=== PATIENT | female | born 1935 | race Caucasian/White ===

== ENCOUNTER 2016-03-12 09:55 | Inpatient (IN) | payer MEDICARE ==
[~2016-03-12] VITALS: Ht 147.3 cm; Wt 61.7 kg
[2016-03-12] VITALS (15 sets, daily range): BP systolic 136–199; BP diastolic 72–113; PULSE 80–113; RESP 15–42; TEMP 97.4–97.8; O2SAT 95–98
[~2016-03-12 09:55] MED LIST: LEVO.025 PO; MECL-62 PO
[2016-03-12] MEDS ORDERED: SODIUM CHLOR 0.9% 1000 ML INJ 1,000 ML IV ONE (10:12)
--- NOTE | 2016-03-12 10:29 | RADRPT ---
EXAM DATE/TIME: 03/12/2016 10:19 [facility] COMPARISON: MRI BRAIN W & W/O CONTRAST, July 02, 2014, 11:09. CT BRAIN W/O CONTRAST, November 12, 2015, 18:36. INDICATIONS : Stroke alert; left sided weakness, slurred speach, left facial droop. RADIATION DOSE: 34.71 CTDIvol (mGy) This report was called by Dr. Pandey to at 10: 26 AM MEDICAL HISTORY : Cardiovascular disease. SURGICAL HISTORY : None. ENCOUNTER: Initial ACUITY: 1 day PAIN SCALE: Non-responsive LOCATION: cranial TECHNIQUE: Multiple contiguous axial images were obtained of the head. Using automated exposure control and adj ustment of the mA and/or kV according to patient size, radiation dose was kept as low as reasonably a chievable to obtain optimal diagnostic quality images. FINDINGS: CEREBRUM: The ventricles are normal for age. No evidence of midline shift, mass lesion, hemorrhage or acute in farction. No extra-axial fluid collections are seen. Marked deep white matter and periventricular mi crovascular butterfly ischemic demyelinization is unchanged POSTERIOR FOSSA: The cerebellum and brainstem are intact. The 4th ventricle is midline. The cerebellopontine angle i s unremarkable. EXTRACRANIAL: The visualized portion of the orbits is intact. SKULL: The calvaria is intact. No evidence of skull fracture. CONCLUSION: Stable CT brain scan with marked microvascular ischemic demyelinization in deep white matter and coreen ventricular in a butterfly pattern. No acute intracranial abnormality. Brady Pandey MD on March 12, 2016 at 10:24 Board Certified Radiologist. This report was verified electronically.
[2016-03-12 10:42] LABS: AUTOMATED NEUTROPHIL # 3.3 TH/MM3 (1.8-7.7); BASOPHIL % 0.2 % (0.0-2.0); EOSINOPHIL # 0.2 TH/MM3 (0-0.4); EOSINOPHIL % 3.5 % (0.0-4.0); HEMATOCRIT 40.9 % (35.0-46.0); HEMO FLAGS DIFF FINAL; LYMPH % 20.8 % (9.0-44.0); MEAN CELL VOLUME 90.5 FL (80.0-100.0); MEAN CORPUSCULAR HEMOGLOBIN 30.8 PG (27.0-34.0); MEAN CORPUSCULAR HGB CONC 34.1 % (32.0-36.0); NEUT % 66.5 % (16.0-70.0); PLATELET COUNT 343 TH/MM3 (150-450); RED BLOOD COUNT 4.52 MIL/MM3 (4.00-5.30); RED CELL DISTRIBUTION WIDTH 13.9 % (11.6-17.2)
[2016-03-12 10:44] LABS: I-STAT POTASSIUM 3.9 MMOL/L (3.5-4.9); I-STAT SODIUM 135 MMOL/L (138-146)
[2016-03-12 10:50] LABS: APTT (PATIENT) 24.4 SEC (24.3-30.1); PROTHROMBIN TIME - PATIENT 10.6 SEC (9.8-11.6)
--- NOTE | 2016-03-12 10:51 | RADRPT ---
EXAM DATE/TIME: 03/12/2016 10:26 [facility] COMPARISON: CHEST SINGLE AP, November 12, 2015, 18:40. INDICATIONS : Chest pain this morning MEDICAL HISTORY : None. SURGICAL HISTORY : shoulder ENCOUNTER: Initial ACUITY: 1 day PAIN SCORE: Non-responsive. LOCATION: Bilateral chest FINDINGS: A single view of the chest demonstrates the lungs to be symmetrically aerated without evidence of mas s, infiltrate or effusion. The cardiomediastinal contours are unremarkable. Osseous structures are intact. CONCLUSION: No acute disease. No significant change has occurred. Brady Pandey MD on March 12, 2016 at 10:49 Board Certified Radiologist. This report was verified electronically.
[2016-03-12] MEDS ORDERED: SYNT25TA PO (11:01)
[2016-03-12] MEDS ORDERED: MECL-62 PO (11:01)
[2016-03-12 11:08] LABS: CREATINE KINASE 51 U/L (26-192)
[2016-03-12] MEDS ORDERED: DEXTROSE 50% IN WATER 50 ML VIAL(D50) IV PUSH PRN (11:30)
[2016-03-12] MEDS ORDERED: GLUCAGON 1 MG/ML VIAL IM/SQ PRN (11:30)
[2016-03-12] MEDS ORDERED: ENALAPRILAT 1.25 MG/ML VIAL IV PRN (11:30)
[2016-03-12] MEDS ORDERED: SODIUM CHLORIDE 0.9% FLUSH 5 ML FLUSH IVF PRN (11:30)
[2016-03-12 11:31] LABS: AMPHETAMINE, URINE NEG (NEG); BARBITURATES, URINE NEG (NEG); COCAINE, URINE NEG (NEG)
--- NOTE | 2016-03-12 11:31 | HHI.HP ---
[facility] Service Family Medicine Primary Care Physician Anthony Linares MD Admission Diagnosis CVA, AMS Diagnoses: International Travel<30 Days: No Contact w/Intl Traveler<30days: No Known Affected Area: No History of Present Illness Of note patient is a poor historian due to altered mental status Most history obtained from caregiver who is not the best historian either This an 80-year-old female with past medical history significant for hypothyroidism and atrial fibrillation (currently not anticoagulated). She is presenting to the hospital due to altered mental status. She was brought in by her caregiver data processing specialist. She woke at 8 AM on the day of admission (03/12/16) at her baseline. This at around 9 AM when she slumped over and had a near syncopal episode. Since that point the patient was acting confused, not making any sense, and appeared weaker. She was brought in by [facility] and a stroke alert was performed. At the time of evaluation workup has been negative for stroke. Per caregiver at baseline she has a left-sided facial droop, but is currently worse. Throughout the examination she was uncooperative, completely confused, and unable to follow any commands other than squeezing my fingers. Most of information obtained from chart review (Babar Diamond MD R2) Review of Systems ROS Limitations: Clinical Condition, Altered Mental Status, Uncooperative, Poor Historian Other Endorses: Confusion, generalized weakness, generalized pain Denies: Fever, nausea, vomiting, abdominal pain (Babar Diamond MD R2) Past Family Social History Past Medical History Hypothyroidism Vertigo Possible atrial fibrillation Past Surgical History Appendectomy Rotator cuff surgery Reported Medications Reported Meds & Active Scripts Active Reported Meclizine (Meclizine HCl) 25 Mg Tab 25 Mg PO TID Synthroid (Levothyroxine Sodium) 25 Mcg Tab 25 Mcg PO DAILY (Babar Diamond MD R2) Allergies: Coded Allergies: Biaxin (Verified Allergy, Severe, 03/12/16) Sulfites & Bisulfites (Verified Allergy, Severe, 03/12/16) Hydrocodone (Unverified Allergy, Unknown, 03/12/16) Morphine (Verified Allergy, Unknown, 03/12/16) Family History Patient's father from brain cancer. Mother from breast cancer Social History Per caregiver Lives at home by herself with 2 caregivers monitoring her day and night. Denies smoking Denies alcohol Denies illicit drugs (Babar Diamond MD R2) Physical Exam Vital Signs Vital Signs Date Time Temp Pulse Resp B/P Pulse Ox O2 Delivery O2 Flow Rate FiO2 03/12/16 11:02 92 20 187/86 98 Nasal Cannula 2 03/12/16 10:30 87 20 162/76 98 Nasal Cannula 03/12/16 10:14 98 Nasal Cannula 2 03/12/16 10:14 98 Nasal Cannula 2 03/12/16 10:14 17 97 Nasal Cannula 03/12/16 10:07 97.6 84 15 164/72 97 03/12/16 10:02 97.8 104 26 136/79 95 Physical Exam GENERAL: Elderly female lying in bed in no acute distress SKIN: Warm and dry. HEAD: Atraumatic. Normocephalic. EYES: Pupils equal and round. No scleral icterus. No injection or drainage. ENT: No nasal bleeding or discharge. Mucous membranes pink and moist. NECK: Supple CARDIOVASCULAR: Regular rate and rhythm. No murmur appreciated. RESPIRATORY: No accessory muscle use. Clear to auscultation. Breath sounds equal bilaterally. GASTROINTESTINAL: Abdomen soft, non-tender, nondistended. MUSCULOSKELETAL: No obvious deformities. No edema. NEUROLOGICAL: Awake, not alert or oriented, saying one-word sentences, not answering questions or following commands. No nystagmus noticed. Slight nasal labial fold flattening on the left, per caregiver worse than baseline. Left arm and left leg are slightly weakened compared to the right with minimal droop. No obvious ataxia, sensory loss, language deficit or dysarthria, neglect. Patient is not able to cooperate with neuro exam. Laboratory Laboratory Tests Test 03/12/16 10:10 White Blood Count 5.0 Red Blood Count 4.52 Hemoglobin 13.9 Bedside Hemoglobin 14.3 Hematocrit 40.9 Bedside Hematocrit 42.0 Mean Corpuscular Volume 90.5 Mean Corpuscular Hemoglobin 30.8 Mean Corpuscular Hemoglobin 34.1 Concent Red Cell Distribution Width 13.9 Platelet Count 343 Mean Platelet Volume 7.5 Neutrophils (%) (Auto) 66.5 Lymphocytes (%) (Auto) 20.8 Monocytes (%) (Auto) 9.0 Eosinophils (%) (Auto) 3.5 Basophils (%) (Auto) 0.2 Neutrophils # (Auto) 3.3 Lymphocytes # (Auto) 1.0 Monocytes # (Auto) 0.4 Eosinophils # (Auto) 0.2 Basophils # (Auto) 0.0 CBC Comment DIFF FINAL Differential Comment Prothrombin Time 10.6 Prothromb Time International 1.0 Ratio Activated Partial 24.4 Thromboplast Time Fibrinogen 366 Bedside Sodium 135 Bedside Potassium 3.9 Bedside Chloride 101 Bedside Blood Urea Nitrogen 20 Bedside Creatinine 0.6 Bedside Glucose 113 Total Creatine Kinase 51 Troponin I LESS THAN 0.02 Blood Type B POSITIVE Antibody Screen NEGATIVE Blood Bank Comment (Babar Diamond MD R2) Result Diagram: 03/12/16 1010 Imaging Last Impressions Chest X-Ray 03/12/16 1013 Signed Impressions: Service Date/Time: Saturday, March 12, 2016 10:26 - CONCLUSION: No acute disease. No significant change has occurred. Brady Pandey MD Head Magnetic Resonance Angiography 03/12/16 0000 Signed Impressions: Service Date/Time: Saturday, March 12, 2016 12:54 - CONCLUSION: Normal examination. Brady Pandey MD Head CT 03/12/16 0000 Signed Impressions: Service Date/Time: Saturday, March 12, 2016 10:19 - CONCLUSION: Stable CT brain scan with marked microvascular ischemic demyelinization in deep white matter and periventricular in a butterfly pattern. No acute intracranial abnormality. Brday Pandey MD (Babar Diamond MD R2) Assessment and Plan Assessment and Plan This an 80-year-old female with past medical history significant for hypothyroidism and atrial fibrillation (currently not anticoagulated). Being admitted for altered mental status, differential diagnosis CVA versus TIA versus delirium. UA suggestive of urinary tract infection. Code Status Full code Discussed Condition With WDW: Dr. Stern (Babar Diamond MD R2) Attending Attestation THIS CASE WAS DISCUSSED WITH THE RESIDENT PHYSICIANS. I HAVE REVIEWED THE RECORD AND AGREE WITH THE ABOVE NOTE AND PLAN OF CARE WAS DISCUSSED. I HAVE AUTHORIZED THE ORDER FOR ADMISSION TO AN IN-PATIENT STATUS. (Frank Stern MD) Problem List: (1) Altered mental status Status: Acute Plan: Presenting with altered mental status concern for CVA versus TIA versus delirium versus metabolic abnormality. Stroke alert called at time of arrival. UA suggestive of UTI * Admitted to inpatient * Neurology consulted: Recommendations appreciated * Per neurology holding TPA at this time * CT brain: no acute hemorrhagic stroke * MRI brain: Pending * Head of bed flat * Permissive hypertension * Ativan 0.5 mg IV every 4 hours when necessary anxiety or agitation * Insulin sliding scale * Trending troponins * Lipid profile ordered: Results pending * Hemoglobin A1c ordered: Results pending * CBC, BMP ordered for the a.m. (2) UTI (urinary tract infection) Status: Acute Plan: UA suggestive of urinary tract infection: Positive nitrites, large leukocyte esterase, many bacteria, urine white blood cell count elevated at 128. Delirium due to UTI possibility for altered mental status. * Started Rocephin 2 g IV every 24 hours * Urine cultures pending * Blood cultures pending (3) Hypothyroidism Status: Acute Plan: Reported history of hypothyroidism * Continue home medication of Synthroid (4) Nutrition, metabolism, and development symptoms Status: Acute Plan: Nothing by mouth Swallow study ordered Head of bed flat until cleared by neurology Permissive hypertension SCD and Lovenox DVD prophylaxis Vitals every 4 Neuro checks every 2 NIH stroke scale CODE STATUS: Full code Health care surrogate: Eve Head[place] #[phone] (Babar Diamond MD R2) Physician Certification 2 Midnight Certification Type: Admission for Inpatient Services Order for Inpatient Services The services are ordered in accordance with Medicare regulations or non- Medicare payer requirements, as applicable. In the case of services not specified as inpatient-only, they are appropriately provided as inpatient services in accordance with the 2-midnight benchmark. Estimated LOS (days): 3 days is the estimated time the patient will need to remain in the hospital, assuming treatment plan goals are met and no additional complications. Post-Hospital Plan: SNF (Babar Diamond MD R2) Problem Qualifiers (1) Altered mental status: Qualified Code: R41.82 - Altered mental status, unspecified altered mental status type Babar Diamond MD R2 Mar 12, 2016 11:31 Frank Stern MD Mar 12, 2016 19:40
--- NOTE | 2016-03-12 11:31 | PD ---
HPI Chief Complaint: Neuro Symptoms/ Deficits Time Seen by Provider: 10:07 Travel History International Travel<30 days: No Contact w/Intl Traveler<30days: No Traveled to known affect area: No History of Present Illness HPI Patient is a 80-year-old female who presents the emergency department with altered mental status and neuro symptoms. Patient is here with her personal carer. Neither of the 2 of them are able to provide good history. After approximately 10-15 minutes talking with both of them from what I can gather she awoke at her baseline at approximately 8 AM. She was eating breakfast at which point she slumped over on her personal carer with a near syncopal episode. Patient then seemed to be acting inappropriately thereafter. She was brought here and immediately bedded where she was evaluated by myself. Patient is cantankerous and is unable to cooperate with history or physical. digital experience manager states that she does not have any family locally, And to her knowledge her only medical problem is hypothyroidism. PFSH Past Medical History Asthma: Yes Anxiety: Yes Depression: Yes Heart Rhythm Problems: Yes (SVT) Cancer: No Cardiovascular Problems: Yes High Cholesterol: No Chest Pain: No Congestive Heart Failure: No Diabetes: No Diminished Hearing: No Endocrine: Yes Gastrointestinal Disorders: Yes GERD: Yes Genitourinary: No Hepatitis: No Immune Disorder: No Musculoskeletal: Yes Neurologic: Yes Psychiatric: Yes Reproductive: No Respiratory: No Migraines: Yes Thyroid Disease: Yes Ulcer: Yes Menopausal: Yes Past Surgical History Abdominal Surgery: Yes (APPENDECTOMY) Appendectomy: Yes Eye Surgery: No Genitourinary Surgery: Yes (PILONIDAL CYSTECTOMY) Pacemaker: No Tonsillectomy: Yes Other Surgery: Yes (L ROTATOR CUFF) Social History Alcohol Use: No Tobacco Use: No Substance Use: No Allergies-Medications (Allergen,Severity, Reaction): Coded Allergies: Biaxin (Verified Allergy, Severe, 03/12/16) Sulfites & Bisulfites (Verified Allergy, Severe, 03/12/16) Hydrocodone (Unverified Allergy, Unknown, 03/12/16) Morphine (Verified Allergy, Unknown, 03/12/16) Reported Meds & Prescriptions Reported Meds & Active Scripts Active Reported Meclizine (Meclizine HCl) 25 Mg Tab 25 Mg PO TID Synthroid (Levothyroxine Sodium) 25 Mcg Tab 25 Mcg PO DAILY Review of Systems ROS Limitations: Altered Mental Status, Poor Historian Physical Exam Exam Limitations: Altered Mental Status, Poor Historian Narrative GENERAL: Elderly female lying in bed in no acute distress SKIN: Warm and dry. HEAD: Atraumatic. Normocephalic. EYES: Pupils equal and round. No scleral icterus. No injection or drainage. ENT: No nasal bleeding or discharge. Mucous membranes pink and moist. NECK: Supple CARDIOVASCULAR: Regular rate and rhythm. No murmur appreciated. RESPIRATORY: No accessory muscle use. Clear to auscultation. Breath sounds equal bilaterally. GASTROINTESTINAL: Abdomen soft, non-tender, nondistended. MUSCULOSKELETAL: No obvious deformities. No edema. NEUROLOGICAL: Awake and alert. But does not answer questions or follow commands appropriately. No obvious gaze or visual field deficit. Slight nasal labial fold flattening on the left, though there is an associated scar with this. digital experience manager does not know whether this is chronic or not. Left arm and left leg are slightly weakened compared to the right with minimal droop. No obvious ataxia, sensory loss, language deficit or dysarthria, neglect. Patient is not able to cooperate completely with [place] stroke scale testing, from the best I can gather her stroke scale is 6 @ 1010. PSYCHIATRIC: Appropriate mood and affect; insight and judgment normal. Data Data Last Documented VS Vital Signs Date Time Temp Pulse Resp B/P Pulse Ox O2 Delivery O2 Flow Rate FiO2 03/12/16 11:02 92 20 187/86 98 Nasal Cannula 2 03/12/16 10:07 97.6 Orders Diet Npo (03/12/16 Lunch) Activity Bed Rest (03/12/16 ) Electrocardiogram (03/12/16 ) I-Stat Creatinine (03/12/16 10:12) I-Stat Profile (03/12/16 10:12) Prothrombin Time / Inr (Pt) (03/12/16 10:12) Act Partial Throm Time (Ptt) (03/12/16 10:12) Complete Blood Count With Diff (03/12/16 10:12) Fibrinogen (03/12/16 10:12) Creatine Kinase (Cpk) (03/12/16 10:12) Troponin I (03/12/16 10:12) Ua Includes Microscopic (03/12/16 10:12) Drug Screen, Random Urine (03/12/16 10:12) Type And Screen (03/12/16 10:12) Ct Brain W/O Iv Contrast(Rout) (03/12/16 ) Consult Neurology (03/12/16 ) Blood Glucose (03/12/16 10:12) Ecg Monitoring (03/12/16 10:12) Neuro Checks Q2HX12,Q4H (03/12/16 10:12) Nursing Bedside Swallow Assess .ONCE (03/12/16 10:12) Iv Access Insert/Monitor (03/12/16 10:12) NPO (03/12/16 10:12) Oximetry (03/12/16 10:12) Oxygen Administration (03/12/16 10:12) Sodium Chlor 0.9% 1000 Ml Inj (Ns 1000 M (03/12/16 10:12) Resp Oxygen Shane C Titrat 1-4 L (03/12/16 10:12) Cath For Specimen (03/12/16 10:12) Chest, Single Ap (03/12/16 10:13) Urinalysis - C+S If Indicated (03/12/16 10:13) (Hub Use Only)Inp Phy Cons/Ref (03/12/16 ) Admit Order (Ed Use Only) (03/12/16 11:09) Labs Laboratory Tests Test 03/12/16 10:10 White Blood Count 5.0 TH/MM3 Red Blood Count 4.52 MIL/MM3 Hemoglobin 13.9 GM/DL Bedside Hemoglobin 14.3 G/DL Hematocrit 40.9 % Bedside Hematocrit 42.0 % Mean Corpuscular Volume 90.5 FL Mean Corpuscular Hemoglobin 30.8 PG Mean Corpuscular Hemoglobin 34.1 % Concent Red Cell Distribution Width 13.9 % Platelet Count 343 TH/MM3 Mean Platelet Volume 7.5 FL Neutrophils (%) (Auto) 66.5 % Lymphocytes (%) (Auto) 20.8 % Monocytes (%) (Auto) 9.0 % Eosinophils (%) (Auto) 3.5 % Basophils (%) (Auto) 0.2 % Neutrophils # (Auto) 3.3 TH/MM3 Lymphocytes # (Auto) 1.0 TH/MM3 Monocytes # (Auto) 0.4 TH/MM3 Eosinophils # (Auto) 0.2 TH/MM3 Basophils # (Auto) 0.0 TH/MM3 CBC Comment DIFF FINAL Differential Comment Prothrombin Time 10.6 SEC Prothromb Time International 1.0 RATIO Ratio Activated Partial 24.4 SEC Thromboplast Time Fibrinogen 366 mg/dL Bedside Sodium 135 MMOL/L Bedside Potassium 3.9 MMOL/L Bedside Chloride 101 MMOL/L Bedside Blood Urea Nitrogen 20 MG/DL Bedside Creatinine 0.6 MG/DL Bedside Glucose 113 MG/DL Total Creatine Kinase 51 U/L Troponin I LESS THAN 0.02 NG/ML Blood Type B POSITIVE Antibody Screen NEGATIVE Blood Bank Comment MDM Medical Decision Making Medical Screen Exam Complete: Yes Emergency Medical Condition: Yes Medical Record Reviewed: Yes Differential Diagnosis 80-year-old female here with altered mental status. On exam she has left-sided neuro deficits, unclear whether this is new or not but per care provider it is new. Therefore stroke alert was activated. Differential includes CVA, TIA, UTI , metabolic derangement, electrolyte abnormality, syncope, near-syncope, arrhythmia, ICH, encephalopathy. Narrative Course Patient met by myself, placed on monitor, IV established and blood obtained. Stroke alert activated. Patient was expedited for neuro imaging, head CT shows chronic changes but no acute abnormalities. Twelve-lead EKG shows sinus rhythm without notable ST abnormalities, normal intervals. CBC, i-STAT, coags, fibrinogen, CPK, troponin obtained and unremarkable. Portal chest x-ray obtained and by my read shows no acute abnormalities. Urinalysis and urine drug screen remains pending at the time this dictation. Patient will be admitted to the residence for further management. Throughout patient's emergency department stay her neurologic examination gradually improved even just returning from CT. Patient certainly is not consentable, there is a personal carer at bedside who is not able to consent for her. Given the unclear picture, poor history and only minimal neurologic deficit which patient could live with independently I certainly do not feel comfortable thrombolysis in her. I spoke with neurologist Dr. Reyes who agrees with above plan. Critical Care Narrative Aggregate critical care time was 45 minutes. Time to perform other separately billable procedures was not included in the critical care time. My time did not include minutes spent treating any other patients simultaneously or on activities that did not directly contribute to the patient's treatment. The services I provided to this patient were to treat and/or prevent clinically significant deterioration that could result in: Neurologic decompensation, , disability, consideration of thrombolysis I provided critical care services requiring my management, as noted below: Chart data review, documentation time, medication orders and management, vital sign assessments/reviewing monitor data, ordering and reviewing lab tests, ordering and interpreting/reviewing x-rays and diagnostic studies, care of the patient and discussion of the patient with the admitting physicians. Diagnosis Primary Impression: CVA (cerebral vascular accident) Qualified Code: I63.9 - Cerebrovascular accident (CVA), unspecified mechanism Additional Impression: Altered mental status Qualified Code: R41.82 - Altered mental status, unspecified altered mental status type Admitting Information Admitting Physician Requests: Admit Fernanda Campos MD Mar 12, 2016 11:31
[2016-03-12 11:32] LABS: BACTERIA, URINE MANY /hpf; BLOOD, URINE NEG (NEG); COMMENT (UR) CATH-CULTURE IND; CULTURE IF INDICATED CATH CULTURE IND; GLUCOSE,URINE NEG (NEG); KETONE, URINE NEG (NEG); NITRITE,URINE POS (NEG); URINE COLOR LIGHT-YELLOW (YELLW/STRAW)
[2016-03-12] MEDS: ENOXAPARIN SODIUM 60 MG/0.6 ML SYRINGE SQ SCH (12:20)
[2016-03-12] MEDS: LORazepam 2 MG/ML VIAL IV PUSH PRN ×2 (12:42→21:53)
[2016-03-12 13:10] LABS: APTT (PATIENT) 25.3 SEC (24.3-30.1)
--- NOTE | 2016-03-12 13:23 | RADRPT ---
EXAM DATE/TIME: 03/12/2016 12:54 [facility] COMPARISON: CT BRAIN W/O CONTRAST, March 12, 2016, 10:19. CHEST SINGLE AP, March 12, 2016, 10:26. INDICATIONS : Altered mental status. MEDICAL HISTORY : Hypertension. SURGICAL HISTORY : Stenting, Lt shoulder ENCOUNTER: Initial ACUITY: 1 day PAIN SCORE: 0/10 LOCATION: cranial Please note a normal MRA of the brain does not entirely exclude the possibility of a small aneurysm, nor the possibility of distal intracranial vessel disease. TECHNIQUE: 3D time of flight MRA was performed. Source images, multiplanar STS MIP, and 3D volume MIP reconstru ctions were reviewed. FINDINGS: There is excellent visualization of the major intracranial arteries out to the second-order branch ve ssels. There is no evidence for aneurysm, vessel truncation or stenosis, and no evidence for vascula r malformation. CONCLUSION: Normal examination. Brady Pandey MD on March 12, 2016 at 13:19 Board Certified Radiologist. This report was verified electronically.
--- NOTE | 2016-03-12 13:49 | EKG ---
Date Performed: 03/12/2016 Time Performed: 10:40:37 PTAGE: 80 years EKG: Sinus rhythm NORMAL ECG PREVIOUS TRACING : 11/12/2015 19.20 No significant change from previous tracing noted. DOCTOR: Juan Juares Interpretating Date/Time 03/12/2016 13:47:55
--- NOTE | 2016-03-12 13:56 | RADRPT ---
EXAM DATE/TIME: 03/12/2016 12:54 [facility] COMPARISON: No previous studies available for comparison. INDICATIONS : Altered mental status. MEDICAL HISTORY : Hypertension. SURGICAL HISTORY : Stenting, left shoulder ENCOUNTER: Initial ACUITY: 1 day PAIN SCORE: 0/10 LOCATION: Cranial TECHNIQUE: Multiplanar, multisequence MRI of the brain was performed without contrast. FINDINGS: Marked periventricular white matter changes are noted with central and cortical atrophy. There is no restricted diffusion suggesting an acute process. There is moderate dilatation of ventricular and s ulcal spaces. There are no extra-axial fluid collections appreciated. The periventricular ischemic changes extend into the basal ganglia and the posterior fossa. Small l acunar infarcts are seen in the brain stem. There is no parenchymal hemorrhage. CONCLUSION: Marked central and cortical atrophy without restricted diffusion. Albino Knox MD FACR on March 12, 2016 at 13:23 Board Certified Radiologist. This report was verified electronically.
[2016-03-12] MEDS: INSULIN ASPART SUPPLEMENTAL SCALE SQ SCH ×2 (16:00→21:00)
[2016-03-12] MEDS: cefTRIAXone INJ 2,000 MG in SODIUM CHLORIDE 0.9% INJ 100 ML IV SCH (17:45)
[2016-03-12] MEDS ORDERED: MECLIZINE HCL 25 MG TAB PO SCH (18:00)
[2016-03-12] MEDS: SODIUM CHLORIDE 0.9% FLUSH 5 ML FLUSH IVF SCH (21:00)
[2016-03-13] VITALS (7 sets, daily range): BP systolic 120–178; BP diastolic 59–78; PULSE 95–114; RESP 18–23; TEMP 96–98.9; O2SAT 95–98
[2016-03-13] MEDS: LEVOTHYROXINE SODIUM 25 MCG TAB PO SCH (05:25)
[2016-03-13] MEDS: INSULIN ASPART SUPPLEMENTAL SCALE SQ SCH ×4 (05:26→22:13)
[2016-03-13 07:35] LABS: AUTOMATED NEUTROPHIL # 10.2 TH/MM3 (1.8-7.7); BASOPHIL % 0.2 % (0.0-2.0); HEMATOCRIT 39.5 % (35.0-46.0); HEMO FLAGS DIFF FINAL; LYMPH % 6.7 % (9.0-44.0); LYMPHOCYTE # 0.8 TH/MM3 (1.0-4.8); MEAN CORPUSCULAR HEMOGLOBIN 30.4 PG (27.0-34.0); MEAN CORPUSCULAR HGB CONC 33.8 % (32.0-36.0); MONO % 5.7 % (0.0-8.0); NEUT % 87.4 % (16.0-70.0); PLATELET COUNT 355 TH/MM3 (150-450); RED BLOOD COUNT 4.38 MIL/MM3 (4.00-5.30); RED CELL DISTRIBUTION WIDTH 13.7 % (11.6-17.2); WHITE BLOOD COUNT 11.7 TH/MM3 (4.0-11.0)
[2016-03-13 08:01] LABS: BICARBONATE 22.9 MEQ/L (21.0-32.0); POTASSIUM 3.4 MEQ/L (3.5-5.1)
--- NOTE | 2016-03-13 08:35 | HHI.FPPN ---
Subjective Remarks FM Attending Note: Patient seen and examined. S: Chart and all resident physician notes reviewed. In summary this is a 80 year old female who was admitted with an admission diagnosis of Cva,Ams. This patient has a history of a dementing illness for which she was initially in a senior living facility following a hospitalization and then discharged to her private home and [place] with 24-hour aids to assist her. The patient also has a power of staff attorney apparently for finances and health care. In addition to the alteration of her mental status when admitted yesterday her aid spell but she has some left facial weakness. This morning her altered mental status has significantly improved but her aid who is present still feels that she has some slight weakness of the left side of her mouth. The patient denies any difficulty. She is right handed. Normally she needs assistance with her instrumental activities of daily living although the aid notes that she helps assist her in directing payment of pills. She is independent normally in her basic activities of daily living. This patient was reportedly taking meclizine 3 times a day for chronic dizziness prior to admission. Objective Vitals Vital Signs Date Time Temp Pulse Resp B/P Pulse Ox O2 Delivery O2 Flow Rate FiO2 03/13/16 04:30 97.1 100 23 169/78 96 03/13/16 00:00 98.9 114 20 178/78 98 03/12/16 20:32 107 03/12/16 20:00 97.4 113 20 173/80 96 03/12/16 17:00 92 18 180/88 97 03/12/16 15:30 96 18 179/87 97 03/12/16 12:30 93 199/92 03/12/16 12:30 94 26 199/92 03/12/16 12:00 102 40 167/113 03/12/16 11:45 105 42 162/112 03/12/16 11:15 108 190/90 03/12/16 11:02 92 20 187/86 98 Nasal Cannula 2 03/12/16 11:01 104 34 187/86 03/12/16 10:45 80 31 162/76 03/12/16 10:30 87 20 162/76 98 Nasal Cannula 03/12/16 10:14 98 Nasal Cannula 2 03/12/16 10:14 98 Nasal Cannula 2 03/12/16 10:14 17 97 Nasal Cannula 03/12/16 10:07 97.6 84 15 164/72 97 03/12/16 10:02 97.8 104 26 136/79 95 I/O 03/12/16 03/12/16 03/12/16 03/13/16 03/13/16 03/13/16 07:00 15:00 23:00 07:00 15:00 23:00 Intake Total 0 ml 0 ml Output Total 1500 ml 1000 ml Balance -1500 ml -1000 ml Intake Oral 0 ml 0 ml Output Urine Total 1500 ml 1000 ml # Bowel Movements 0 0 Result Diagram: 03/13/16 0659 03/13/16 0659 Other Results Item Value Date Time Total Creatine Kinase 51 U/L 03/12/16 1010 Troponin I LESS THAN 0.02 NG/ML L 03/12/16 1010 Troponin I LESS THAN 0.02 NG/ML L 03/12/16 1237 Troponin I LESS THAN 0.02 NG/ML L 03/12/16 1745 Troponin I LESS THAN 0.02 NG/ML L 03/12/16 2341 Triglycerides Level 62 MG/DL 03/13/16 0659 Cholesterol Level 228 MG/DL H 03/13/16 0659 LDL Cholesterol 133 MG/DL H 03/13/16 0659 HDL Cholesterol 83.0 MG/DL H 03/13/16 0659 Cholesterol/HDL Ratio 2.74 RATIO 03/13/16 0659 Urine Opiates Screen NEG 03/12/16 1100 Urine Barbiturates Screen NEG 03/12/16 1100 Urine Amphetamines Screen NEG 03/12/16 1100 Urine Benzodiazepines Screen NEG 03/12/16 1100 Urine Cocaine Screen NEG 03/12/16 1100 Urine Cannabinoids Screen NEG 03/12/16 1100 Urine Specific Orange 1.009 03/12/16 1100 Urine Nitrite POS H 03/12/16 1100 Urine Leukocyte Esterase LARGE H 03/12/16 1100 Urine RBC 5 /hpf H 03/12/16 1100 Urine WBC 128 /hpf H 03/12/16 1100 Imaging Last 48 hours Impressions Chest X-Ray 03/12/16 1013 Signed Impressions: Service Date/Time: Saturday, March 12, 2016 10:26 - CONCLUSION: No acute disease. No significant change has occurred. Brady Pandey MD Head Magnetic Resonance Angiography 03/12/16 0000 Signed Impressions: Service Date/Time: Saturday, March 12, 2016 12:54 - CONCLUSION: Normal examination. Brady Pandey MD Head CT 03/12/16 0000 Signed Impressions: Service Date/Time: Saturday, March 12, 2016 10:19 - CONCLUSION: Stable CT brain scan with marked microvascular ischemic demyelinization in deep white matter and periventricular in a butterfly pattern. No acute intracranial abnormality. Brady Pandey MD Brain MRI 03/12/16 0000 Signed Impressions: Service Date/Time: Saturday, March 12, 2016 12:54 - CONCLUSION: Marked central and cortical atrophy without restricted diffusion. Albino Knox MD FACR Objective Remarks O. CONSTITUTIONAL/GEN: normally nourished, in NAD. EYES: conjunctiva normal, PERRLA, EOMI. ENT: Mouth and pharynx normal other than a very mild droop of the left side of her mouth. NECK: thyroid midline, carotids symmetrical. LUNGS: clear A-P, respiratory effort is normal. CARDIOVASCULAR: RR without murmur or gallop. No significant edema. GI/ABD: soft without masses, without organomegaly. : no CVA tenderness NEURO: No focal deficits. Subtle weakness of the face at the left side of her mouth. SKIN: color normal, no rashes noted. MUSC: back is normal in appearance. Extremities are normal in appearance. PSYCH/MENTAL STATUS: Alert and oriented to person. She does not recall the day , date or year. She does not recall the current study. She does not recall that her home is in [facility]. She does report that she was originally from [place]. She will carry on a normal simple conversation.. A/P Assessment and Plan This an 80-year-old female with past medical history significant for hypothyroidism and atrial fibrillation (currently not anticoagulated). Being admitted for altered mental status, differential diagnosis CVA versus TIA versus delirium. UA suggestive of urinary tract infection. Problem List: (1) Altered mental status Status: Acute Plan: Presenting with altered mental status concern for CVA versus TIA versus delirium versus metabolic abnormality. Stroke alert called at time of arrival. UA suggestive of UTI * Admitted to inpatient * Neurology consulted: Recommendations appreciated * Per neurology holding TPA at this time * CT brain: no acute hemorrhagic stroke * MRI brain: Pending * Head of bed flat * Permissive hypertension * Ativan 0.5 mg IV every 4 hours when necessary anxiety or agitation * Insulin sliding scale * Trending troponins * Lipid profile ordered: Results pending * Hemoglobin A1c ordered: Results pending * CBC, BMP ordered for the a.m. 03/13/16 This patient's mental status has returned to her baseline. She has a history of dementia for which she has been living at home with 24-hour aids to assist in her care. There is still a subtle left facial weakness at the left side of the mouth. Reviewing her MRI shows that she did have some small lacunar infarctions noted in the brainstem. This facial weakness could be due to a very small lacunar infarct. We'll continue to observe as her activity level increases. We'll monitor blood pressure with a focus on blood pressure control if it appears that she is significantly hypertensive. I did discuss with the patient and her caregiver the problems that can be associated with meclizine and have encouraged him to stop this when she is discharged. If her mobility level is normal possible discharge home with continued 24-hour aide assistance and home health care might be appropriate depending on the evaluation by PT/OT. (2) UTI (urinary tract infection) Status: Acute Plan: UA suggestive of urinary tract infection: Positive nitrites, large leukocyte esterase, many bacteria, urine white blood cell count elevated at 128. Delirium due to UTI possibility for altered mental status. * Started Rocephin 2 g IV every 24 hours * Urine cultures pending * Blood cultures pending (3) Hypothyroidism Status: Acute Plan: Reported history of hypothyroidism * Continue home medication of Synthroid (4) Nutrition, metabolism, and development symptoms Status: Acute Plan: Nothing by mouth Swallow study ordered Head of bed flat until cleared by neurology Permissive hypertension SCD and Lovenox DVD prophylaxis Vitals every 4 Neuro checks every 2 NIH stroke scale CODE STATUS: Full code [phone] Problem Qualifiers (1) Altered mental status: Qualified Code: R41.82 - Altered mental status, unspecified altered mental status type Frank Stern MD Mar 13, 2016 08:35
--- NOTE | 2016-03-13 08:48 | MB ---
cc: IRMA FLORES DATE OF CONSULTATION 03/12/2016 REASON FOR CONSULTATION Stroke Alert. HISTORY OF PRESENT ILLNESS This is an 80-year-old female with past medical history of hypothyroidism and atrial fibrillation, currently not anticoagulated. She presented to [facility] due to altered mental status. A Stroke Alert was called. She was brought in by her caregiver, Fozia, who states that the patient woke up at 8 a.m., ready, groomed and ready to go to [employer] and then the she saw her slump over, had near-syncopal episode. She was confused and with slurring of speech which was not her baseline as per the caregiver. I talked to the emergency room physician, Dr. Ibanez, and she stated that the patient slurred, weaker on the left which is her baseline with mild left facial droop. The patient was confused and assessing her NIH Stroke Scale was hard because of the lack of communication and the patient at the same time was not able to consent. Head CT scan without contrast revealed no acute intracranial abnormality. The Stroke Team trying to get hold of family members to get consent. None was available. The patient did not have the capacity to consen, hence an MRI was done and patient was deemed not to be a candidate to receive IV T-PA, in agreement with between neurologist and the ED physician. MRI of the brain was also done that was reported with marked central cortical atrophy without restricted diffusion and a head MRA was done that was reported as a normal examination. The patient is admitted for further workup. During the encounter, the caregiver, Fozia, states that the patient has had previous episodes of syncope/near-syncope but without loss of consciousness. Denies convulsions. Denies any history of seizures but at baseline the patient is weaker on the left side with very mild left facial droop. She walks around with a walker. She takes care of her daily activities as per the caregiver. She does not drive though and she has control of her urinary bladder. REVIEW OF SYSTEMS A 12-point review of systems is negative except for what is stated in the HPI. PAST MEDICAL HISTORY 1. Hypothyroidism. 2. Vertigo. 3. History of atrial fibrillation. PAST SURGICAL HISTORY 1. Appendectomy. 2. Rotator cuff surgery. MEDICATIONS 1. Meclizine. 2. Synthroid. ALLERGIES BIAXIN. SULFITES. HYDROCODONE. MORPHINE. FAMILY HISTORY Father from brain cancer. Mother of breast cancer. SOCIAL HISTORY Lives at home by herself with two caregivers, day and night. Denies smoking, alcohol and illicit drug use. PHYSICAL EXAMINATION General: The patient lays in bed. Mild to irritability. Awake, alert. No clear speech difficulty with the caregiver at the bedside, in mild distress HEENT: Atraumatic, normocephalic. Intact hearing and intact vision. Neck: Supple. No signs of meningeal irritation. Cardiovascular: Regular rate and rhythm. No murmurs. Respiratory: Clear to auscultation. No wheezes. Musculoskeletal: No obvious deformity. No cyanosis, no edema. Moves all extremities Neurological: Awake, alert, oriented to person, not place, intermittently to time. She follows commands, squeezes hands, opens eyes, sticks out the tongue. She knew the names of her caregivers. However, she was confused at times and delirious. Pupils are 2-3 mm bilaterally equally reacting and symmetrical. No nystagmus is noted. Subtle left facial weakness. Upper extremities and lower extremities are grossly 5/5. Lack of cooperation and give-way made the assessment not accurate but grossly 5/5. Sensation is 5/5, intact throughout. Reflexes 2+ bilaterally symmetrical. Plantars are bilaterally downgoing. Unable to cooperate for the cerebellar function assessment. LABORATORY DATA White blood cells 5, hemoglobin 13.9, MCV 90.5, platelet count 343. INR 1. Fibrinogen 366. Sodium 135, potassium 3.9, BUN 20, creatinine 0.6, total CK 51. Troponin less than 0.02. DIAGNOSTIC IMAGING - Head CT scan without contrast stable with marked microvascular ischemic demyelinization in the deep white matter and paraventricular in a butterfly pattern. No acute intracranial abnormality. - Head MRA without contrast was reported as normal brain. - MRI without contrast revealed marked central and cortical atrophy without restricted diffusion. DIAGNOSTIC IMPRESSION - Encephalopathy. Possible etiologies are infectious (UTI/metabolic). No clinical or radiological evidence of an acute intracranial abnormality. PLAN 1. Neuro checks q. 4 hours. 2. No indication for t-PA. 3. Management of infectious and metabolic abnormalities by the attending team. 4. PT, OT recommendations are appreciated. 5. SCD prophylaxis. 6. Fall precautions. 7. Resume all medications 8. N.p.o. until cleared by speech therapy and bedside swallow test. Thank you for the opportunity to participate in the care of your patient. MD ELO Hameed/JORGE /7:27 PM /8:17 AM BRODERICK
[2016-03-13] MEDS: SODIUM CHLORIDE 0.9% FLUSH 5 ML FLUSH IVF SCH ×2 (09:00→21:00)
[2016-03-13 12:39] LABS: HEMOGLOBIN A1a 1.2 %; HEMOGLOBIN A1b 2.1 %; HEMOGLOBIN Ao 83.5 %; HEMOGLOBIN LA1C 2.6 %; HEMOGLOBIN P3 5.7 %
[2016-03-13] MEDS: ENOXAPARIN SODIUM 60 MG/0.6 ML SYRINGE SQ SCH ×2 (14:24)
--- NOTE | 2016-03-13 15:25 | EC ---
Study Study Date:03/13/2016 STUDY CONCLUSIONS SUMMARY - Left ventricle: The cavity size was normal. Wall thickness was normal. Systolic function was normal. The estimated ejection fraction was in the range of 55% to 60%. Wall motion was normal; there were no regional wall motion abnormalities. - Aortic valve: Valve area: 2.57cm^2 (Vmax). Impressions: No cardiac source of emboli was indentified. If LV function is below 40, please consider prescribing an ACEI or ARB or document rationale for non-use. PROCEDURE DATA STUDY STATUS: Elective. Procedure: Transthoracic echocardiography. Image quality was poor. Scanning was performed from the parasternal, apical, and subcostal acoustic windows. Study completion: The patient tolerated the procedure well. Transthoracic echocardiography. M-mode, complete 2D, complete spectral Doppler, and color Doppler. Height: Height: 58in. Weight: Weight: 131.7lb. Body mass index: BMI: 27.6kg/m^2. Body surface area: BSA: 1.53m^2. Patient status: Inpatient. CARDIAC ANATOMY LEFT VENTRICLE: The cavity size was normal. Wall thickness was normal. Systolic function was normal. The estimated ejection fraction was in the range of 55% to 60%. Wall motion was normal; there were no regional wall motion abnormalities. AORTIC VALVE: Trileaflet; normal thickness leaflets. Doppler: Transvalvular velocity was within the normal range. There was no stenosis. No regurgitation. Valve area: 2.57cm^2 (Vmax). Indexed valve area: 1.68cm^2/m^2 (Vmax). AORTA: Aortic root: The aortic root was normal in size. MITRAL VALVE: Structurally normal valve. Doppler: Transvalvular velocity was within the normal range. There was no evidence for stenosis. Trace to mild regurgitation. Peak gradient: 2mm Hg (D). LEFT ATRIUM: The atrium was normal in size. RIGHT VENTRICLE: The cavity size was normal. Wall thickness was normal. PULMONIC VALVE: Doppler: Transvalvular velocity was within the normal range. There was no evidence for stenosis. No regurgitation. TRICUSPID VALVE: Structurally normal valve. Doppler: Transvalvular velocity was within the normal range. No regurgitation. PULMONARY ARTERY: The main pulmonary artery was normal-sized. Systolic pressure was within the normal range. RIGHT ATRIUM: The atrium was normal in size. PERICARDIUM: There was no pericardial effusion. SYSTEMIC VEINS: Inferior vena cava: The vessel was normal in size. Patient weight: 131.7lb _Ejection fraction:_ 65-75% _Fractional shortening:_ 32% up to 5Kg 5-11.5Kg 11.6-22.9Kg 23-45Kg 45-57Kg Aortic Root 7-13 <17 13-22 17-27 17-27 LA diam 6-13 <23 24-38 33-47 37-40 RVID 10-17 7-15 7-15 7-18 8-17 LVIDd 12-22 <32 24-38 33-47 37-40 LVPW 2-4 3-6 5-7 6-8 7-8 IVS 2-4 3-6 5-7 6-8 7-8 BASIC MEASUREMENTS ADULT NORMAL Left ventricle LV internal dimension, ED, chordal *32.1 mm 43-52 level, PLAX LV internal dimension, ES, chordal 23.7 mm 23-38 level, PLAX Fractional shortening, chordal level, *26 % >29 PLAX LV posterior wall thickness, ED 6.86 mm IVS/LVPW ratio, ED 1.04 <1.3 Ventricular septum Septal thickness, ED 7.14 mm Aortic valve Leaflet separation 19 mm 15-26 BASIC MEASUREMENTS ADULT NORMAL Aortic valve Leaflet separation 19 mm 15-26 Aorta Root diameter, ED 30 mm 20-37 Left atrium Anterior-posterior dimension, ES 23 mm 19-40 Anterior-posterior dimension index, ES 1.5 cm/m^2 <2.2 LA/aortic root ratio 0.77 DOPPLER MEASUREMENTS ADULT NORMAL Main pulmonary artery Pressure, S 23 mm Hg =30 Aortic valve Peak velocity, S 137 cm/s Valve area, Vmax 2.57 cm^2 Valve area index, Vmax 1.68 cm^2/m^2 Mitral valve Peak E-wave velocity 77.5 cm/s Peak A-wave velocity 109 cm/s Deceleration time *88 ms 150-230 Peak gradient, D 2 mm Hg Peak E/A ratio 0.7 Maximal regurgitant velocity 263 cm/s Tricuspid valve Regurgitant peak velocity 198 cm/s Peak RV-RA gradient, S 16 mm Hg Maximal regurgitant velocity 198 cm/s Systemic veins Estimated CVP 10 mm Hg Right ventricle RV pressure, S 26 mm Hg <30 Pulmonic valve Peak velocity, S 89.6 cm/s LEGEND: Mean values are shown as u=mean value. Asterisk (*) fine values outside specified normal range. Prepared and signed by Lexus Miller [id number]
[2016-03-13] MEDS: cefTRIAXone INJ 2,000 MG in SODIUM CHLORIDE 0.9% INJ 100 ML IV SCH (18:44)
[2016-03-14] VITALS (7 sets, daily range): BP systolic 136–163; BP diastolic 61–76; PULSE 80–96; RESP 18–20; TEMP 95.3–97.6; O2SAT 96–99
[2016-03-14] MEDS: ENOXAPARIN SODIUM 60 MG/0.6 ML SYRINGE SQ SCH ×2 (02:10→11:26)
[2016-03-14] MEDS: INSULIN ASPART SUPPLEMENTAL SCALE SQ SCH ×2 (06:33→11:00)
[2016-03-14] MEDS: LEVOTHYROXINE SODIUM 25 MCG TAB PO SCH (06:33)
[2016-03-14] MEDS: SODIUM CHLORIDE 0.9% FLUSH 5 ML FLUSH IVF SCH (08:13)
[2016-03-14 08:35] LABS: AUTOMATED NEUTROPHIL # 5.8 TH/MM3 (1.8-7.7); BASOPHIL # 0.1 TH/MM3 (0-0.2); BASOPHIL % 0.9 % (0.0-2.0); EOSINOPHIL # 0.2 TH/MM3 (0-0.4); EOSINOPHIL % 1.7 % (0.0-4.0); HEMATOCRIT 38.3 % (35.0-46.0); HEMO FLAGS DIFF FINAL; LYMPH % 22.7 % (9.0-44.0); MEAN CELL VOLUME 90.8 FL (80.0-100.0); MEAN CORPUSCULAR HEMOGLOBIN 30.9 PG (27.0-34.0); MEAN CORPUSCULAR HGB CONC 34.1 % (32.0-36.0); MONO % 8.8 % (0.0-8.0); NEUT % 65.9 % (16.0-70.0); PLATELET COUNT 348 TH/MM3 (150-450); RED BLOOD COUNT 4.22 MIL/MM3 (4.00-5.30); RED CELL DISTRIBUTION WIDTH 13.9 % (11.6-17.2); WHITE BLOOD COUNT 8.9 TH/MM3 (4.0-11.0)
[2016-03-14 08:52] LABS: BICARBONATE 22.9 MEQ/L (21.0-32.0); POTASSIUM 3.6 MEQ/L (3.5-5.1)
--- NOTE | 2016-03-14 10:22 | HHI.FPPN ---
Subjective Remarks Patient seen and examined this morning. Temperature 97.6, pulse 94, respiratory rate 20, blood pressure 163/76, pulse ox 96 on room air. She was examined in the room in her chair, and she reported that she is doing well. He was explained to her that we will be awaiting the results of the urine culture to determine what oral antibiotic to start her on. She understands the steps that are required and her plan of care. She is looking forward to getting out of the hospital as soon as possible. She was evaluated by PT with recommendations for home health. Endorses: None Denies: Fever, chills, nausea, vomiting, shortness of breath, chest pain, headache, abdominal pain, calf pain (Babar Diamond MD R2) Objective Vitals Vital Signs Date Time Temp Pulse Resp B/P Pulse Ox O2 Delivery O2 Flow Rate FiO2 03/14/16 09:30 87 03/14/16 08:00 95.3 96 18 139/66 98 03/14/16 04:29 97.6 94 20 163/76 96 03/14/16 03:48 92 03/14/16 00:13 96.8 91 20 136/61 99 03/13/16 20:39 97.8 95 18 129/69 95 03/13/16 16:00 96.7 102 20 120/59 96 03/13/16 12:00 96.0 99 20 137/63 98 I/O 03/13/16 03/13/16 03/13/16 03/14/16 03/14/16 03/14/16 07:00 15:00 23:00 07:00 15:00 23:00 Intake Total 0 ml 480 ml 480 ml Output Total 1000 ml 150 ml 150 ml 150 ml Balance -1000 ml 330 ml 330 ml -150 ml Intake Oral 0 ml 480 ml 480 ml Output Urine Total 1000 ml 150 ml 150 ml 150 ml # Voids 1 # Bowel Movements 0 1 1 (Babar Diamond MD R2) Result Diagram: 03/14/16 0746 03/14/16 0746 Imaging Last Impressions Chest X-Ray 03/12/16 1013 Signed Impressions: Service Date/Time: Saturday, March 12, 2016 10:26 - CONCLUSION: No acute disease. No significant change has occurred. Brady Pandey MD Head Magnetic Resonance Angiography 03/12/16 0000 Signed Impressions: Service Date/Time: Saturday, March 12, 2016 12:54 - CONCLUSION: Normal examination. Brady Pandey MD Head CT 03/12/16 0000 Signed Impressions: Service Date/Time: Saturday, March 12, 2016 10:19 - CONCLUSION: Stable CT brain scan with marked microvascular ischemic demyelinization in deep white matter and periventricular in a butterfly pattern. No acute intracranial abnormality. Brady Pandey MD Brain MRI 03/12/16 0000 Signed Impressions: Service Date/Time: Saturday, March 12, 2016 12:54 - CONCLUSION: Marked central and cortical atrophy without restricted diffusion. Albino Knox MD FACR Objective Remarks O. CONSTITUTIONAL/GEN: normally nourished, in NAD. EYES: conjunctiva normal, PERRLA, EOMI. ENT: Mouth and pharynx normal other than a very mild droop of the left side of her mouth. NECK: thyroid midline, carotids symmetrical. LUNGS: clear A-P, respiratory effort is normal. CARDIOVASCULAR: RR without murmur or gallop. No significant edema. GI/ABD: soft without masses, without organomegaly. : no CVA tenderness NEURO: No focal deficits. Subtle weakness of the face at the left side of her mouth. SKIN: color normal, no rashes noted. MUSC: back is normal in appearance. Extremities are normal in appearance. PSYCH/MENTAL STATUS: Alert and oriented to person and place. She does not recall the day, date or year. She is able to carry on a normal conversation Medications and IVs Current Medications Medications (Trade) Dose Ordered Sig/Dawit Route Start Time Stop Time Status Last Admin (NS Flush) 2 ml BID IVF 03/12/16 21:00 03/14/16 08:13 (NS Flush) 2 ml UNSCH PRN IVF 03/12/16 11:30 (Vasotec Inj) 1.25 mg Q4H PRN IV 03/12/16 11:30 (Lovenox Inj) 60 mg Q12H SQ 03/12/16 12:00 03/14/16 02:10 (D50w (Vial) Inj) 25 ml UNSCH PRN IV PUSH 03/12/16 11:30 (Glucagon Inj) 1 mg UNSCH PRN IM/SQ 03/12/16 11:30 Lorazepam 0.5 mg 0.5 mg Q4H PRN IV PUSH 03/12/16 12:00 03/12/16 21:53 (Rocephin Inj/NS Inj) 100 ml @ 200 mls/hr Q24H IV 03/12/16 17:00 03/13/16 18:44 (Synthroid) 25 mcg DAILY@06 PO 03/13/16 06:00 03/14/16 06:33 (Babar Diamond MD R2) A/P Assessment and Plan This an 80-year-old female with past medical history significant for hypothyroidism and atrial fibrillation (currently not anticoagulated). Being admitted for altered mental status, differential diagnosis CVA versus TIA versus delirium. Stroke workup negative. Found to have a urinary tract infection. Discharge Planning Plan for discharge once on oral antibiotics (Babar Diamond MD R2) Attending Attestation Patient seen and examined. Case reviewed and discussed with the resident team. Agree with plan of care as discussed with me and documented in the resident note. (Frank Stern MD) Problem List: (1) Altered mental status Status: Acute Plan: Patient has underlying dementia, she appears to be back to her baseline at this time. Altered mental status believed to be caused by her urinary tract infection resulting in delirium. At this time she is improving on the IV antibiotics. * Neurology consulted: Recommendations appreciated * CT brain: no acute hemorrhagic stroke * MRI brain: Old lacunar infarct * Ativan 0.5 mg IV every 4 hours when necessary anxiety or agitation * Insulin sliding scale * Lipid profile ordered: Showed elevated cholesterol * Hemoglobin A1c ordered: 5.8 * See UTI plan below (2) UTI (urinary tract infection) Status: Acute Plan: Urine culture positive for Escherichia coli. Found to be sensitive to Keflex by mouth. * Continue Rocephin 2 g IV every 24 hours * Plan to convert antibiotics to Keflex after today's dose of Rocephin in the a.m. * Blood cultures no growth to date 1 (3) Hypothyroidism Status: Acute Plan: Reported history of hypothyroidism * Continue home medication of Synthroid (4) Nutrition, metabolism, and development symptoms Status: Acute Plan: Regular diet SCD and Lovenox DVD prophylaxis Vitals every 4 Neuro checks every 2 NIH stroke scale CODE STATUS: Full code [phone] (Babar Diamond MD R2) Problem Qualifiers (1) Altered mental status: Qualified Code: R41.82 - Altered mental status, unspecified altered mental status type Babar Diamond MD R2 Mar 14, 2016 10:22 Frank Stern MD Mar 14, 2016 16:18
[2016-03-14] MEDS ORDERED: CEPH-460 PO (10:57)
--- NOTE | 2016-03-14 10:58 | HHI.DCPOC ---
Discharge Care Plan Diagnosis: (1) Altered mental status (2) UTI (urinary tract infection) Goals to Promote Your Health * To prevent worsening of your condition and complications * To maintain your health at the optimal level Take antibiotics to completion Directions to Meet Your Goals Take your medications as prescribed Follow your dietary instruction Follow activity as directed Keep your appointments as scheduled Take your immunizations and boosters as scheduled If your symptoms worsen call your PCP, if no PCP go to Urgent Care Center or Emergency Room Smoking is Dangerous to Your Health. Avoid second hand smoke Call the 24-hour hour crisis hotline for domestic abuse at Babar Diamond MD R2 Mar 14, 2016 10:58
--- NOTE | 2016-03-14 11:04 | HHI.FF ---
Face to Face Verification Diagnosis: (1) UTI (urinary tract infection) (2) Altered mental status (3) Weakness generalized Physical Therapy Order: Evaluate and Treat Occupational Therapy Order: Evaluate and Treat Single Ending Machine Operator Order: To Evaluate: Living conditions/environment, Support services Order: To Provide: Long range planning I have seen patient Aydee Romero on 03/14/16. My clinical findings support the need for the requested home health care services because: Ltd mobility - disease progression Deconditioned w/ increased weakness Limited ability to care for self Need for psychosocial assistance Impaired cognition/judgement High risk of falls Infection w/ risk of complications I certify that my clinical findings support that this patient is homebound because: Impaired cognitive ability/safety Unsteady gait/balance Need for psychosocial assistance Poor cardiac reserve Babar Diamond MD R2 Mar 14, 2016 11:03
--- NOTE | 2016-03-14 11:06 | HHI.DS ---
Discharge Summary Admission Date Mar 12, 2016 at 11:10 Discharge Date: Mar 14, 2016 Admitting Diagnosis CVA, AMS (1) Altered mental status Diagnosis: Principal Plan: Patient has underlying dementia, she appears to be back to her baseline at this time. Altered mental status believed to be caused by her urinary tract infection resulting in delirium. At this time she is improving on the IV antibiotics. 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 Found to be sensitive to Keflex by mouth. * Continue Rocephin 2 g IV every 24 hours * Plan to convert antibiotics to Keflex after today's dose of Rocephin in the a.m. * Blood cultures no growth to date 1 (3) Hypothyroidism Diagnosis: Secondary Plan: Reported history of hypothyroidism * Continue home medication of Synthroid (4) Nutrition, metabolism, and development symptoms Diagnosis: Secondary Plan: Regular diet SCD and Lovenox DVD prophylaxis Vitals every 4 Neuro checks every 2 NIH stroke scale CODE STATUS: Full code Health care surrogate: Eve [place] #[phone] Consultants Neurology Brief History Of note patient is a poor historian due to altered mental status Most history obtained from caregiver who is not the best historian either This an 80-year-old female with past medical history significant for hypothyroidism and atrial fibrillation (currently not anticoagulated). She is presenting to the hospital due to altered mental status. She was brought in by her caregiver fire adjuster. She woke at 8 AM on the day of admission (03/12/16) at her baseline. This at around 9 AM when she slumped over and had a near syncopal episode. Since that point the patient was acting confused, not making any sense, and appeared weaker. She was brought in by [facility] and a stroke alert was performed. At the time of evaluation workup has been negative for stroke. Per caregiver at baseline she has a left-sided facial droop, but is currently worse. Throughout the examination she was uncooperative, completely confused, and unable to follow any commands other than squeezing my fingers. Most of information obtained from chart review CBC/BMP: 03/14/16 0746 03/14/16 0746 Significant Findings Laboratory Tests Test 03/12/16 03/12/16 03/12/16 03/12/16 10:10 11:00 12:37 17:45 Monocytes (%) (Auto) 9.0 % (0.0-8.0) Bedside Sodium 135 MMOL/L (138-146) Bedside Glucose 113 MG/DL (60-95) Troponin I LESS THAN 0.02 LESS THAN 0.02 LESS THAN 0.02 NG/ML NG/ML NG/ML (0.02-0.05) (0.02-0.05) (0.02-0.05) Urine Turbidity HAZY (CLEAR) Urine Nitrite POS (NEG) Urine Leukocyte Esterase LARGE (NEG) Urine RBC 5 /hpf (0-3) Urine WBC 128 /hpf (0-5) Urine Bacteria MANY /hpf (NONE) Test 03/12/16 03/13/16 03/14/16 23:41 06:59 07:46 Troponin I LESS THAN 0.02 NG/ML (0.02-0.05) White Blood Count 11.7 TH/MM3 (4.0-11.0) Neutrophils (%) (Auto) 87.4 % (16.0-70.0) Lymphocytes (%) (Auto) 6.7 % (9.0-44.0) Neutrophils # (Auto) 10.2 TH/MM3 (1.8-7.7) Lymphocytes # (Auto) 0.8 TH/MM3 (1.0-4.8) Potassium Level 3.4 MEQ/L (3.5-5.1) Random Glucose 149 MG/DL 108 MG/DL (74-106) (74-106) Cholesterol Level 228 MG/DL (120-200) LDL Cholesterol 133 MG/DL (0-99) HDL Cholesterol 83.0 MG/DL (40.0-60.0) Monocytes (%) (Auto) 8.8 % (0.0-8.0) Estimat Glomerular Filtration 79 ML/MIN (>89) Rate Imaging Last Impressions Chest X-Ray 03/12/16 1013 Signed Impressions: Service Date/Time: Saturday, March 12, 2016 10:26 - CONCLUSION: No acute disease. No significant change has occurred. Brady Pandey MD Head Magnetic Resonance Angiography 03/12/16 0000 Signed Impressions: Service Date/Time: Saturday, March 12, 2016 12:54 - CONCLUSION: Normal examination. Brady Pandey MD Head CT 03/12/16 0000 Signed Impressions: Service Date/Time: Saturday, March 12, 2016 10:19 - CONCLUSION: Stable CT brain scan with marked microvascular ischemic demyelinization in deep white matter and periventricular in a butterfly pattern. No acute intracranial abnormality. Brady Pandey MD Brain MRI 03/12/16 0000 Signed Impressions: Service Date/Time: Saturday, March 12, 2016 12:54 - CONCLUSION: Marked central and cortical atrophy without restricted diffusion. Albino Knox MD FACR PE at Discharge O. CONSTITUTIONAL/GEN: normally nourished, in NAD. EYES: conjunctiva normal, PERRLA, EOMI. ENT: Mouth and pharynx normal other than a very mild droop of the left side of her mouth. NECK: thyroid midline, carotids symmetrical. LUNGS: clear A-P, respiratory effort is normal. CARDIOVASCULAR: RR without murmur or gallop. No significant edema. GI/ABD: soft without masses, without organomegaly. : no CVA tenderness NEURO: No focal deficits. Subtle weakness of the face at the left side of her mouth. SKIN: color normal, no rashes noted. MUSC: back is normal in appearance. Extremities are normal in appearance. PSYCH/MENTAL STATUS: Alert and oriented to person and place. She does not recall the day, date or year. She is able to carry on a normal conversation Hospital Course 80 y/o female with history of hypothyroidism and atrial fibrillation presented with altered mental status. Initially, a stroke alert was called, neurology evaluated patient and decided patient was not a candidate for immediate intervention. Stroke precautions were put in place. UA was significant for UTI and patient was started on Rocephin. After treatment, patient significantly improved and her neurological symptoms resolved. Patient is being discharged in stable condition with antibiotics for UTI and with home health. Pt Condition on Discharge: Stable Discharge Disposition: Disch w/ Home Health Serv Discharge Instructions DIET: Follow Instructions for: Heart Healthy Diet Speech Therapy-Diet Recommends: Mechanical Soft Activities you can perform: Regular-No Restrictions Follow up Referrals: PCP Follow-up - 1 Week New Medications: Cephalexin (Keflex) 500 Mg Cap 500 MG PO Q12H Infection #20 Ref 0 CAP Continued Medications: Levothyroxine (Synthroid) 25 Mcg Tab 25 MCG PO DAILY Thyroid #30 Ref 0 TAB Discontinued Medications: Meclizine (Meclizine) 25 Mg Tab 25 MG PO TID Ref 0 TAB John Jackson MD R1 Mar 14, 2016 11:06
[2016-03-14] MEDS ORDERED: ASPI81CH CHEW (13:46)
== END 2016-03-14 16:08 | disposition home health service (06) | DRG 690 ==
LOC: NEPA 09:55 → NEDA 11:10 → NEDH 15:00 → N05B 19:08
PROVIDERS: ADMIT Family Medicine; ATTEND Family Medicine
DX: N39.0 Urinary tract infection, site not specified (principal); F05 Delirium due to known physiological condition; I48.91 Unspecified atrial fibrillation; F03.90 Unspecified dementia, unspecified severity, without behavioral disturbance, psychotic disturbance, mood disturbance, and anxiety; B96.20 Unspecified Escherichia coli [E. coli] as the cause of diseases classified elsewhere; E03.9 Hypothyroidism, unspecified; R42 Dizziness and giddiness; Z86.73 Personal history of transient ischemic attack (TIA), and cerebral infarction without residual deficits; Z88.1 Allergy status to other antibiotic agents; Z88.5 Allergy status to narcotic agent
CPT/HCPCS: 70450; 70544; 70551; 71010; 76937; 80048; 80061; 80307; 81001; 82435; 82550; 82565; 82947; 82948; 83036; 84132; 84295; 84484; 84520; 85025; 85384; 85610; 85730; 86850; 86900; 86901; 87040; 87077; 87086; 87186; 93005; 93306; 94150; J0696; J1650; J1815; J2060; J7030; P9612

== ENCOUNTER → 2017-03-18 | Outpatient (CLI) | payer MEDICARE ==
[~2017-03-18] MED LIST changes: +ASPI-516 CHEW; +CEPH-460 PO; -LEVO.025 PO; -MECL-62 PO; +SYNT25TA PO
--- NOTE | 2017-03-19 15:57 | EKG ---
Date Performed: 03/18/2017 Time Performed: 13:35:34 PTAGE: 81 years EKG: Sinus rhythm with borderline 1st degree A-V block. Borderline ECG Since the prior tracing, there has been no sign ificant change PREVIOUS TRACING : 03/12/2016 10.40 DOCTOR: Aria Pyle Interpretating Date/Time 03/19/2017 15:56:24
== END ==
LOC: HCAV 13:23
PROVIDERS: ATTEND Family Medicine
DX: Z01.810 Encounter for preprocedural cardiovascular examination (principal)
CPT/HCPCS: 93005